=== PATIENT | female | born 1940 | race Caucasian/White ===

== ENCOUNTER 2021-03-11 05:38 | Inpatient (IN) ==
[2021-03-11] MEDS ORDERED: ONDANSETRON 4 MG/2 ML VIAL IV STA (05:47)
[2021-03-11] MEDS ORDERED: SODIUM CHLORIDE 0.9% 1,000 ML IV STA ×2 (05:47→08:46)
[2021-03-11 06:20] LABS: Albumin 3.1 G/DL (3.4-5.0); Bilirubin,Total 0.8 MG/DL (0.2-1.0); Osmolality,Calculated 296.8 MOS/KG (273-304)
[2021-03-11 06:48] LABS: Basophils % 0.4 % (0.0-0.8); Eosinophils % 0.3 % (0.00-10.9); Hematocrit 40.9 VOL% (35.7-47.0); Immature Granulocytes % 1.6 %; Immature Granulocytes Absolute 0.12 #; Lymphocytes # 0.8 10*3/uL (1.4-4.0); Mean Corpuscular HGB Conc 31.8 GM/DL (32-36); Mean Corpuscular Volume 91.9 FL (87-102); Mean Platelet Volume 12.3 FL (9.6-12.0); Monocytes % 18.1 % (1.7-12.7); Neutrophils % 69.6 % (38.7-73.9); Platelet Count 305 T/CUMM (130-400); Red Blood Count 4.45 MC/CUMM (3.8-5.5); Red Cell Distribution Width 14.8 % (9.3-17.3); White Blood Count 7.7 T/CUMM (4-12)
[2021-03-11 07:15] LABS: Band Neutrophils 11 % (0-10); Hypochromasia 1+; Lymphocytes 11 % (20-55); Metamyelocytes 1 %; Microcytosis Slight; Ovalocytes Few; Segmented Neutrophils 61 % (50-85); Total Cells Counted 100
[2021-03-11 07:16] LABS: Platelet Estimate Normal
[2021-03-11] MEDS ORDERED: GLUCAGON 1 MG VIAL IM PRN (08:49)
[2021-03-11] MEDS ORDERED: ACETAMINOPHEN 325 MG TABLET PO PRN (08:49)
[2021-03-11] MEDS ORDERED: LACTULOSE 20 GM/30 ML UDCUP PO PRN (08:49)
[2021-03-11] MEDS ORDERED: hydrALAZINE 20 MG/1 ML VIAL IV PRN (08:49)
[2021-03-11] MEDS ORDERED: DEXTROSE 50% 25 GM/50 ML VIAL IV PRN (08:49)
[2021-03-11 09:22] LABS: Risk Ratio 1.83; Thyroid Stimulating Hormone 0.323 uIU/ml (0.358-3.74); VLDL CHOLESTEROL 32.4 MG/DL
[2021-03-11] MEDS: ENOXAPARIN 30 MG/0.3 ML SYRINGE SUBCUT SCH (11:30)
[2021-03-11] MEDS: INSULIN REGULAR 100 UNIT/ML SUBCUT SCH ×3 (12:19→21:36)
[2021-03-11] MEDS: SODIUM CHLORIDE 0.9% 1,000 ML IV SCH ×2 (14:08→21:53)
[2021-03-11] MEDS: ONDANSETRON 4 MG/2 ML VIAL IV PRN (21:35)
[2021-03-11] MEDS: cycloSPORINE OPH EMUL 1 VIAL BOTH EYES SCH (21:36)
[2021-03-11] MEDS: TIMOLOL 0.5% OPH SOLN 5 ML BOTTLE BOTH EYES SCH (21:36)
[2021-03-11] MEDS: DORZOLAMIDE 2% OPH SOLN 10 ML BOTTLE BOTH EYES SCH (21:37)
[2021-03-11] MEDS: LATANOPROST 0.005% OPH SOLN 2.5 ML BOTTLE BOTH EYES SCH (21:51)
[2021-03-11 21:56] LABS: Bilirubin,Urine Negative (Negative); Blood, Urine Negative (Negative); Glucose,Urine (UA) Negative (Negative); Ketones,Urine 20 mg/dL (Negative); Mucus,Urine Occasional /LPF (Occasional); Nitrite,Urine Negative (Negative); Protein,Urine 30 MG/DL; RBC,Urine 7 /HPF (0-4); Squamous Epithelial Cell,Urine Occasional /HPF (0-10); Urine Appearance Slightly Hazy (Clear); Urine Color Yellow (Yellow); Urine Specific Gravity 1.021 (1.001-1.035); Urine Urobilinogen < 2.0 EU/DL (0.2-1.0)
[2021-03-12 05:53] LABS: Basophils % 0.5 % (0.0-0.8); Eosinophils % 0.2 % (0.00-10.9); Hematocrit 38.2 VOL% (35.7-47.0); Hemoglobin 12.2 GM/DL (12.0-16.0); Immature Granulocytes % 2.8 %; Immature Granulocytes Absolute 0.16 #; Lymphocytes # 0.4 10*3/uL (1.4-4.0); Lymphocytes % 7.7 % (21.3-54.2); Mean Corpuscular HGB Conc 31.9 GM/DL (32-36); Mean Corpuscular Volume 90.7 FL (87-102); Mean Platelet Volume 12.2 FL (9.6-12.0); Monocytes % 9.3 % (1.7-12.7); Neutrophils % 79.5 % (38.7-73.9); Platelet Count 276 T/CUMM (130-400); Red Blood Count 4.21 MC/CUMM (3.8-5.5); White Blood Count 5.7 T/CUMM (4-12)
[2021-03-12 06:17] LABS: Anisocytosis 1+; Band Neutrophils 6 % (0-10); Lymphocytes 9 % (20-55); Macrocytosis 1+; Metamyelocytes 3 %; Platelet Estimate Normal; Promyelocytes 1 %; Segmented Neutrophils 71 % (50-85); Total Cells Counted 100
[2021-03-12 06:18] LABS: Free T4 (Free Thyroxine) 1.43 NG/DL (0.76-1.46)
[2021-03-12 07:49] LABS: Calcium 7.2 MG/DL (8.5-10.1); Osmolality,Calculated 294.3 MOS/KG (273-304); Potassium 3.3 MMOL/L (3.5-5.1)
[2021-03-12] MEDS: INSULIN REGULAR 100 UNIT/ML SUBCUT SCH ×4 (08:13→20:45)
[2021-03-12] MEDS: SODIUM CHLORIDE 0.9% 1,000 ML IV SCH ×2 (08:27→17:43)
[2021-03-12] MEDS: ROSUVASTATIN 10 MG TABLET PO SCH (09:51)
[2021-03-12] MEDS: ASPIRIN EC 81 MG TABLET PO SCH (09:51)
[2021-03-12] MEDS: ENALAPRIL 5 MG TABLET PO SCH (09:52)
[2021-03-12] MEDS: PANTOPRAZOLE 40 MG VIAL IV SCH (10:11)
[2021-03-12] MEDS: TIMOLOL 0.5% OPH SOLN 5 ML BOTTLE BOTH EYES SCH ×2 (10:14→21:28)
[2021-03-12] MEDS: cycloSPORINE OPH EMUL 1 VIAL BOTH EYES SCH ×2 (10:15→21:28)
[2021-03-12] MEDS: ENOXAPARIN 30 MG/0.3 ML SYRINGE SUBCUT SCH (10:15)
[2021-03-12] MEDS: DORZOLAMIDE 2% OPH SOLN 10 ML BOTTLE BOTH EYES SCH ×2 (10:15→21:28)
[2021-03-12] MEDS: DILTIAZEM CD 120 MG CAPSULE PO SCH (11:53)
[2021-03-12] MEDS ORDERED: MAGNESIUM SULF RIDER 2 GM/50 ML PREMIX IV PRN (12:28)
[2021-03-12] MEDS ORDERED: MAGNESIUM SULF RIDER 4 GM/100 ML PREMIX IV PRN (12:28)
[2021-03-12] MEDS ORDERED: SODIUM BICARBONATE 50 MEQ/50 ML VIAL IV ONE (12:38)
[2021-03-12] MEDS ORDERED: SODIUM BICARB INJ 50 MEQ in IV BAG 1 EACH IV SCH (13:30)
[2021-03-12] MEDS: DILTIAZEM 30 MG TABLET PO SCH ×3 (13:47→20:45)
[2021-03-12] MEDS: POTASSIUM CHLORIDE RIDER 10 MEQ in PREMIX 1 EACH IV PRN ×4 (15:20→18:22)
[2021-03-12] MEDS: LATANOPROST 0.005% OPH SOLN 2.5 ML BOTTLE BOTH EYES SCH (21:33)
[2021-03-13] MEDS: SODIUM CHLORIDE 0.9% 1,000 ML IV SCH (00:30)
[2021-03-13 07:25] LABS: Calcium 7.8 MG/DL (8.5-10.1); Osmolality,Calculated 284.7 MOS/KG (273-304); Potassium 3.7 MMOL/L (3.5-5.1)
[2021-03-13] MEDS: INSULIN REGULAR 100 UNIT/ML SUBCUT SCH ×4 (07:47→20:58)
[2021-03-13] MEDS: LACTATED RINGERS 1,000 ML IV SCH ×2 (08:22→17:43)
[2021-03-13] MEDS: TIMOLOL 0.5% OPH SOLN 5 ML BOTTLE BOTH EYES SCH ×2 (08:23→21:00)
[2021-03-13] MEDS: ENOXAPARIN 30 MG/0.3 ML SYRINGE SUBCUT SCH (08:23)
[2021-03-13] MEDS: ROSUVASTATIN 10 MG TABLET PO SCH (08:24)
[2021-03-13] MEDS: ASPIRIN EC 81 MG TABLET PO SCH (08:24)
[2021-03-13] MEDS: DILTIAZEM 30 MG TABLET PO SCH ×4 (08:24→20:58)
[2021-03-13] MEDS: ENALAPRIL 5 MG TABLET PO SCH (08:24)
[2021-03-13] MEDS: PHENOL 1.4% THROAT SPRAY 177 ML BOTTLE PO PRN ×2 (08:43→12:31)
[2021-03-13] MEDS: PANTOPRAZOLE 40 MG VIAL IV SCH (08:45)
[2021-03-13] MEDS: DORZOLAMIDE 2% OPH SOLN 10 ML BOTTLE BOTH EYES SCH ×2 (08:45→21:00)
[2021-03-13] MEDS: cycloSPORINE OPH EMUL 1 VIAL BOTH EYES SCH ×2 (08:45→20:59)
[2021-03-13] MEDS: ONDANSETRON 4 MG/2 ML VIAL IV PRN (12:54)
[2021-03-13] MEDS ORDERED: PROMETHAZINE INJ 25 MG in SODIUM CHLORIDE 0.9% 50 ML IV PRN (13:01)
[2021-03-13] MEDS: LATANOPROST 0.005% OPH SOLN 2.5 ML BOTTLE BOTH EYES SCH (20:59)
[2021-03-14] MEDS: LACTATED RINGERS 1,000 ML IV SCH ×4 (02:00→22:06)
[2021-03-14 05:08] LABS: Basophils # 0.1 10*3/uL (0.0-0.2); Basophils % 0.4 % (0.0-0.8); Eosinophils # 0.1 10*3/uL (0.0-0.87); Hematocrit 31.9 VOL% (35.7-47.0); Hemoglobin 10.2 GM/DL (12.0-16.0); Immature Granulocytes % 5.4 %; Immature Granulocytes Absolute 0.68 #; Lymphocytes # 1.2 10*3/uL (1.4-4.0); Lymphocytes % 9.2 % (21.3-54.2); Mean Corpuscular Volume 91.9 FL (87-102); Mean Platelet Volume 11.7 FL (9.6-12.0); Monocytes % 8.2 % (1.7-12.7); Neutrophils % 75.8 % (38.7-73.9); Platelet Count 207 T/CUMM (130-400); Red Blood Count 3.47 MC/CUMM (3.8-5.5); Red Cell Distribution Width 14.9 % (9.3-17.3); White Blood Count 12.5 T/CUMM (4-12)
[2021-03-14 05:29] LABS: Band Neutrophils 2 % (0-10); Eosinophils 2 % (0-10); Hypochromasia Slight; Lymphocytes 10 % (20-55); Microcytosis Slight; Ovalocytes Slight; Platelet Estimate Adequate; Segmented Neutrophils 76 % (50-85); Total Cells Counted 100
[2021-03-14 05:30] LABS: Calcium 7.9 MG/DL (8.5-10.1); Osmolality,Calculated 277.8 MOS/KG (273-304); Potassium 3.1 MMOL/L (3.5-5.1)
[2021-03-14] MEDS: INSULIN REGULAR 100 UNIT/ML SUBCUT SCH ×4 (07:49→21:30)
[2021-03-14] MEDS: POTASSIUM CHLORIDE RIDER 10 MEQ in PREMIX 1 EACH IV PRN ×4 (08:52→17:01)
[2021-03-14] MEDS: DORZOLAMIDE 2% OPH SOLN 10 ML BOTTLE BOTH EYES SCH ×2 (08:55→21:29)
[2021-03-14] MEDS: PANTOPRAZOLE 40 MG VIAL IV SCH (08:56)
[2021-03-14] MEDS: ENOXAPARIN 30 MG/0.3 ML SYRINGE SUBCUT SCH (08:57)
[2021-03-14] MEDS: ASPIRIN EC 81 MG TABLET PO SCH (08:58)
[2021-03-14] MEDS: DILTIAZEM 30 MG TABLET PO SCH ×4 (08:58→21:29)
[2021-03-14] MEDS: ROSUVASTATIN 10 MG TABLET PO SCH (08:58)
[2021-03-14] MEDS: ENALAPRIL 5 MG TABLET PO SCH (08:58)
[2021-03-14] MEDS: TIMOLOL 0.5% OPH SOLN 5 ML BOTTLE BOTH EYES SCH ×2 (08:59→21:29)
[2021-03-14] MEDS: cycloSPORINE OPH EMUL 1 VIAL BOTH EYES SCH ×2 (09:04→21:29)
[2021-03-14] MEDS ORDERED: cefOXitin 1,000 MG in SODIUM CHLORIDE 0.9% 100 ML IV ONE (13:00)
[2021-03-14] MEDS ORDERED: fentaNYL 100 MCG/2 ML VIAL ONE (13:02)
[2021-03-14] MEDS ORDERED: BUPIVACAINE MPF 0.25% 30 ML VIAL ONE (13:38)
[2021-03-14] MEDS ORDERED: LIDOCAINE 1%/EPI INJ 20 ML VIAL ONE (13:38)
[2021-03-14] MEDS ORDERED: ALBUMIN 5% 12.5 GM/250 ML VIAL IV ONE (13:53)
[2021-03-14] MEDS ORDERED: TISSUE ADHESIVE 1 EACH APPLICATOR TOP ONE (14:22)
[2021-03-14] MEDS ORDERED: SUGAMMADEX 200 MG/2 ML VIAL IV ONE (14:42)
[2021-03-14 14:59] LABS: Bilirubin,Urine Negative (Negative); Blood, Urine Negative (Negative); Glucose,Urine (UA) Negative (Negative); Ketones,Urine 80 mg/dL (Negative); Mucus,Urine Occasional /LPF (Occasional); Nitrite,Urine Negative (Negative); Protein,Urine 30 MG/DL; RBC,Urine 2 /HPF (0-4); Urine Appearance CLEAR (Clear); Urine Color Yellow (Yellow); Urine Specific Gravity 1.015 (1.001-1.035); Urine Urobilinogen < 2.0 EU/DL (0.2-1.0)
[2021-03-14] MEDS ORDERED: PHENYLEPHRINE 1 MG/10 ML SYRINGE IV ONE (15:02)
[2021-03-14] MEDS ORDERED: LACTATED RINGERS 1,000 ML IV ONE (15:02)
[2021-03-14] MEDS ORDERED: propofoL 200 MG/20 ML VIAL IV ONE (15:02)
[2021-03-14] MEDS ORDERED: ONDANSETRON 4 MG/2 ML VIAL ONE (15:02)
[2021-03-14] MEDS ORDERED: LIDOCAINE 2% 5 ML VIAL ONE (15:02)
[2021-03-14] MEDS ORDERED: DEXAMETHASONE 4 MG/1 ML VIAL ONE (15:02)
[2021-03-14] MEDS ORDERED: SEVOFLURANE 1 UNIT/15 MINUTE INH ONE (15:02)
[2021-03-14] MEDS ORDERED: SUCCINYLCHOLINE 200 MG/10 ML VIAL ONE (15:02)
[2021-03-14] MEDS ORDERED: ROCURONIUM 50 MG/5 ML VIAL IV ONE (15:02)
[2021-03-14] MEDS ORDERED: ETOMIDATE 40 MG/20 ML VIAL IV ONE (15:02)
[2021-03-14] MEDS ORDERED: diphenhydrAMINE 50 MG/1 ML VIAL IV PRN (20:25)
[2021-03-14] MEDS: LATANOPROST 0.005% OPH SOLN 2.5 ML BOTTLE BOTH EYES SCH (21:29)
[2021-03-15 06:37] LABS: Basophils % 0.2 % (0.0-0.8); Hematocrit 28.8 VOL% (35.7-47.0); Hemoglobin 9.1 GM/DL (12.0-16.0); Immature Granulocytes % 6.4 %; Immature Granulocytes Absolute 0.82 #; Lymphocytes # 0.6 10*3/uL (1.4-4.0); Lymphocytes % 4.7 % (21.3-54.2); Mean Corpuscular HGB Conc 31.6 GM/DL (32-36); Mean Corpuscular Volume 93.2 FL (87-102); Mean Platelet Volume 12.4 FL (9.6-12.0); Monocytes % 4.3 % (1.7-12.7); Neutrophils % 84.4 % (38.7-73.9); Platelet Count 195 T/CUMM (130-400); Red Blood Count 3.09 MC/CUMM (3.8-5.5); Red Cell Distribution Width 14.8 % (9.3-17.3); White Blood Count 12.8 T/CUMM (4-12)
[2021-03-15 06:55] LABS: Calcium 7.8 MG/DL (8.5-10.1); Osmolality,Calculated 283.4 MOS/KG (273-304); Potassium 3.6 MMOL/L (3.5-5.1)
[2021-03-15 06:59] LABS: Lymphocytes 5 % (20-55); Metamyelocytes 1 %; Platelet Estimate Normal; Segmented Neutrophils 90 % (50-85); Total Cells Counted 100
[2021-03-15] MEDS: INSULIN REGULAR 100 UNIT/ML SUBCUT SCH ×4 (08:08→21:43)
[2021-03-15] MEDS: PANTOPRAZOLE 40 MG VIAL IV SCH (09:08)
[2021-03-15] MEDS: ASPIRIN EC 81 MG TABLET PO SCH (09:09)
[2021-03-15] MEDS: ROSUVASTATIN 10 MG TABLET PO SCH (09:09)
[2021-03-15] MEDS: ENOXAPARIN 30 MG/0.3 ML SYRINGE SUBCUT SCH (09:09)
[2021-03-15] MEDS: DORZOLAMIDE 2% OPH SOLN 10 ML BOTTLE BOTH EYES SCH ×2 (09:11→21:46)
[2021-03-15] MEDS: DILTIAZEM 30 MG TABLET PO SCH ×4 (09:11→21:43)
[2021-03-15] MEDS: TIMOLOL 0.5% OPH SOLN 5 ML BOTTLE BOTH EYES SCH ×2 (09:11→21:46)
[2021-03-15] MEDS: ENALAPRIL 5 MG TABLET PO SCH (09:11)
[2021-03-15] MEDS: POTASSIUM CHLORIDE RIDER 10 MEQ in PREMIX 1 EACH IV PRN ×2 (09:11→10:37)
[2021-03-15] MEDS: LACTATED RINGERS 1,000 ML IV SCH ×2 (09:11→16:01)
[2021-03-15] MEDS: cycloSPORINE OPH EMUL 1 VIAL BOTH EYES SCH ×2 (09:11→21:46)
[2021-03-15] MEDS: LATANOPROST 0.005% OPH SOLN 2.5 ML BOTTLE BOTH EYES SCH (21:54)
[2021-03-16] MEDS: LACTATED RINGERS 1,000 ML IV SCH ×3 (00:30→15:22)
[2021-03-16 05:51] LABS: Basophils % 0.3 % (0.0-0.8); Eosinophils # 0.1 10*3/uL (0.0-0.87); Eosinophils % 0.5 % (0.00-10.9); Hematocrit 26.6 VOL% (35.7-47.0); Hemoglobin 8.6 GM/DL (12.0-16.0); Immature Granulocytes % 6.3 %; Immature Granulocytes Absolute 0.72 #; Lymphocytes # 1.1 10*3/uL (1.4-4.0); Lymphocytes % 9.2 % (21.3-54.2); Mean Corpuscular HGB Conc 32.3 GM/DL (32-36); Mean Corpuscular Volume 90.5 FL (87-102); Mean Platelet Volume 12.1 FL (9.6-12.0); Neutrophils % 76.7 % (38.7-73.9); Platelet Count 190 T/CUMM (130-400); Red Blood Count 2.94 MC/CUMM (3.8-5.5); Red Cell Distribution Width 14.7 % (9.3-17.3); White Blood Count 11.5 T/CUMM (4-12)
[2021-03-16 06:07] LABS: Calcium 7.6 MG/DL (8.5-10.1); Osmolality,Calculated 280.5 MOS/KG (273-304)
[2021-03-16 06:16] LABS: Eosinophils 1 % (0-10); Lymphocytes 9 % (20-55); Segmented Neutrophils 87 % (50-85); Total Cells Counted 100
[2021-03-16 06:17] LABS: Hypochromasia 1+; Microcytosis 1+; Platelet Estimate Adequate
[2021-03-16] MEDS ORDERED: MAGNESIUM SULF RIDER 4 GM/100 ML PREMIX IV ONE (08:12)
[2021-03-16] MEDS: ENOXAPARIN 30 MG/0.3 ML SYRINGE SUBCUT SCH (08:34)
[2021-03-16] MEDS: PANTOPRAZOLE 40 MG VIAL IV SCH (08:34)
[2021-03-16] MEDS: INSULIN REGULAR 100 UNIT/ML SUBCUT SCH ×2 (08:35→13:33)
[2021-03-16] MEDS: POTASSIUM CHLORIDE 20 MEQ TABLET PO SCH ×2 (08:35→13:34)
[2021-03-16] MEDS: ROSUVASTATIN 10 MG TABLET PO SCH (08:35)
[2021-03-16] MEDS: ASPIRIN EC 81 MG TABLET PO SCH (08:36)
[2021-03-16] MEDS: ENALAPRIL 5 MG TABLET PO SCH (08:36)
[2021-03-16 08:40] LABS: Folate 9.14 NG/ML (5.38-24.0)
[2021-03-16 08:53] LABS: % Iron Saturation 34.3 % (18-50); Ferritin 69.1 ng/ml (8-252)
[2021-03-16] MEDS ORDERED: CARBIDOPA/LEVODOPA 25-100 MG TABLET PO SCH (09:00)
[2021-03-16] MEDS: TIMOLOL 0.5% OPH SOLN 5 ML BOTTLE BOTH EYES SCH (09:48)
[2021-03-16] MEDS: cycloSPORINE OPH EMUL 1 VIAL BOTH EYES SCH (09:48)
[2021-03-16] MEDS: DILTIAZEM CD 120 MG CAPSULE PO SCH (09:48)
[2021-03-16] MEDS: DORZOLAMIDE 2% OPH SOLN 10 ML BOTTLE BOTH EYES SCH (09:48)
[2021-03-16 12:11] VITALS: BP 132/83
== END 2021-03-16 15:21 | disposition home or self-care (01) | DRG 351 ==
LOC: EDBD → EDUNIT# → N.ED 05:38 → N.EDINP 05:38 → N.5E 13:40 → SUATTDRO 03-12 12:37
PROVIDERS: ADMIT Internal Medicine Geriatric Medicine; ATTEND Internal Medicine